=== PATIENT | male | born 1985 | race Caucasian/White ===

== ENCOUNTER 2023-02-11 19:45 | Emergency (ER) | payer SELFPAY ==
[~2023-02-11] VITALS: Ht 177.8 cm; Wt 104.5 kg
[~2023-02-11 19:45] MED LIST: CELEXA 20MG20 MG/TAB PO; ZOFRAN 4MG T4 MG/TAB PO
[2023-02-11 20:01] VITALS: TEMP 98
[2023-02-11] MEDS ORDERED: ZOFRAN ODT4 MG PO (20:45)
[2023-02-11] MEDS ORDERED: NORCO 325 MG-51 TAB PO (20:45)
[2023-02-11 21:58] VITALS: BP 157/104; PULSE 75
== END 2023-02-11 22:14 | disposition home or self-care (01) ==
LOC: COL.ER 19:45
DX: U07.1 COVID-19 (principal); R51.9 Headache, unspecified; R06.02 Shortness of breath; R05.9 Cough, unspecified; R19.7 Diarrhea, unspecified; F17.290 Nicotine dependence, other tobacco product, uncomplicated; Z28.310 Unvaccinated for COVID-19; Z73.0 Burn-out
CPT/HCPCS: J0780; J1200; J1885; J7030